=== PATIENT | male | born 1970 | race African-American/Black ===

== ENCOUNTER 2018-10-11 10:40 | Inpatient (IN) | payer OTHER ==
[~2018-10-11] VITALS: Ht 180.3 cm; Wt 136.1 kg
[2018-10-11 10:42] VITALS: BP 143/90
[2018-10-11 11:38] LABS: ABSOLUTE NEUTROPHILS 3.7 thou/uL (1.4-8.2); BASOPHILS 0.6 % (0.0-2.0); EOSINOPHILS 3.8 % (0.0-3.0); HEMATOCRIT 44.2 % (42.0-52.0); HEMOGLOBIN 14.3 gm/dL (14.0-18.0); LYMPHOCYTES 28.7 % (24.0-44.0); MCH 26.2 pg (26.0-34.0); MCHC 32.4 g/dL (28.0-37.0); MCV 80.8 fL (80.0-100.0); MONOCYTES 9.3 % (1.0-8.0); PLATELET COUNT 275 thou/uL (150-400); POLYS 57.6 % (36.0-66.0); RBC 5.47 mil/uL (4.50-6.00); RDW 15.1 % (10.5-14.5); WBC 6.4 thou/uL (4.0-11.0)
[2018-10-11 11:46] LABS: CALCIUM 9.6 mg/dL (8.5-10.1); CREATININE 1.2 mg/dL (0.7-1.3); POTASSIUM 3.4 mmol/L (3.5-5.1)
[2018-10-11 11:53] LABS: ALBUMIN 3.9 g/dL (3.4-5.0); TOTAL BILIRUBIN 0.4 mg/dL (<0.1-1.0); TOTAL PROTEIN 7.7 g/dL (6.4-8.2)
[2018-10-11] MEDS ORDERED: VITAMIN D5000 UNIT PO (12:56)
[2018-10-11] MEDS ORDERED: VITAMIN B-12500 MCG PO (12:56)
[2018-10-11] MEDS ORDERED: COREG6.25 MG PO (12:56)
[2018-10-11] MEDS ORDERED: METFORMIN HCL500 MG PO (12:56)
[2018-10-11] MEDS ORDERED: MOBIC15 MG PO (12:57)
[2018-10-11] MEDS ORDERED: HYDROCHLOROTHIA25 M2 PO (12:57)
[2018-10-11] MEDS ORDERED: NORVASC10 MG PO (12:58)
[2018-10-11] MEDS ORDERED: ONGLYZA5 MG PO (12:59)
[2018-10-11] MEDS ORDERED: LISINOPRIL40 MG PO (12:59)
[2018-10-11] MEDS ORDERED: ZANTAC 150MG T150 M1 PO (12:59)
[2018-10-11 14:17] VITALS: BP 155/95
[2018-10-11 14:43] VITALS: BP 158/94
[2018-10-11 15:25] VITALS: BP 156/96
[2018-10-11 19:30] VITALS: BP 148/96
--- NOTE | 2018-10-11 20:18 | NUR ---
Received pt from the ER, pt was nausead and with pain. Medication given. Pt went to sleep when zofran had kicked in. IV fluids started. Endorsed care to the night nurse
[2018-10-12 03:37] VITALS: BP 157/89
[2018-10-12 05:52] LABS: HEMATOCRIT 42.5 % (42.0-52.0); HEMOGLOBIN 13.8 gm/dL (14.0-18.0); MCH 26.4 pg (26.0-34.0); MCHC 32.4 g/dL (28.0-37.0); MCV 81.3 fL (80.0-100.0); RBC 5.23 mil/uL (4.50-6.00); RDW 15.2 % (10.5-14.5); WBC 7.3 thou/uL (4.0-11.0)
[2018-10-12 06:00] LABS: CALCIUM 9.1 mg/dL (8.5-10.1); CREATININE 1.1 mg/dL (0.7-1.3); MAGNESIUM 1.8 mg/dL (1.8-2.4); POTASSIUM 3.8 mmol/L (3.5-5.1)
[2018-10-12 07:53] VITALS: BP 156/99
--- NOTE | 2018-10-12 11:03 | NUR ---
TOWARDS POC PT A/O X4, VSS, AFEBRILE, PAIN AND NAUSEA MANAGED BY MEDS-SEE NOV. PT IS SCHEDULED AT 1230 FOR SURGERY. PRE OP CHECKLIST DONE. PT STILL ON INT. NASO GASTRIC TUBE FOR DECOMPRESSION OF LEFT NARE. WILL CONTINUE TO MONITOR.
[2018-10-12 19:00] VITALS: BP 194/105
[2018-10-12 19:30] VITALS: BP 186/97
[2018-10-12 20:00] VITALS: BP 197/94
--- NOTE | 2018-10-12 20:00 | NUR ---
Pt. resting quietly in the bed and bp is elevated (see vital signs). Called and spoke to Jimena DASILVA and she was notified. New orders for ivp bp meds, see orders.
--- NOTE | 2018-10-12 23:15 | NUR ---
Pt. with elevated temperature and continues to have elevated bp's (see vital signs). Jimena DASILVA called and notified (see new orders). Bp meds given (see emar). Tylenol given for fever (see emar). Pt. is drowsy, but alert. at the bedside. Pt. using incentive spirometer with assistance.
[2018-10-13] VITALS: BP 173/87
--- NOTE | 2018-10-13 | NUR ---
Pt. feel his pain is not getting any better. Epidural increased to 11 ml/hr and Yahir Flynn RN witness increase.
--- NOTE | 2018-10-13 02:00 | NUR ---
Pt. resting quietly in the bed and offers no complaints.
[2018-10-13 02:54] VITALS: BP 173/95
--- NOTE | 2018-10-13 05:00 | NUR ---
Pt. having pain and rates it a 9 out of 10. Epidural was increased to 12 ml/hr. Yahir Flynn RN witness increase. Bp and temperature are trending down (see vital signs). Pt. did verbalize that his pain has improved since increasing epidural pump. Dressing to his abdomen is intact.
[2018-10-13 05:45] LABS: HEMATOCRIT 41.7 % (42.0-52.0); HEMOGLOBIN 13.5 gm/dL (14.0-18.0); MCH 26.2 pg (26.0-34.0); MCHC 32.3 g/dL (28.0-37.0); MCV 81.2 fL (80.0-100.0); PLATELET COUNT 251 thou/uL (150-400); RBC 5.14 mil/uL (4.50-6.00); RDW 15.1 % (10.5-14.5); WBC 11.9 thou/uL (4.0-11.0)
[2018-10-13 06:14] LABS: CREATININE 1.4 mg/dL (0.7-1.3); MAGNESIUM 1.7 mg/dL (1.8-2.4); POTASSIUM 3.8 mmol/L (3.5-5.1)
[2018-10-13 06:49] LABS: ABSOLUTE NEUTROPHILS 7.1 thou/uL (1.4-8.2)
[2018-10-13 06:50] LABS: PLATELET ESTIMATE NORMAL
[2018-10-13 07:37] VITALS: BP 168/95
--- NOTE | 2018-10-13 09:23 | EKG ---
[address] [address] ELECTROCARDIOGRAM REPORT Name: GENAROSWATIMELISA Room #: 453-P ADM IN M.R.#: [id number] Admission: 10/11/18 Attend Phys: Kehinde Hopkins MD Discharge: Date of : 68 Report #: [id number] THIS REPORT FOR: //name// [facility] Test Date: 2018-10-13 Test Time: 04:13:05 Pat Name: MELISA BOWERS Department: Room: 453 P Gender: M Sample Mounter: Yahir Flynn RN : 1970 Requested By: Jimena Haley Order Number: [id number] MD: Sebastien Eugene Measurements Intervals [place] Rate: 97 P: 39 WV: 163 QRS: 43 QRSD: 79 T: 259 QT: 316 QTc: 402 Interpretive Statements Incomplete analysis due to missing data in precordial lead(s) Sinus rhythm Nonspecific T abnormalities, diffuse leads Missing lead(s): V3 No previous ECG available for comparison Electronically Signed On 10-13-2018 9:23:29 INVOICE CODER by Sebastien Eugene [email or web address] <ELECTRONICALLY SIGNED> By: Sebastien Eugene MD, [facility] 10/13/18 0923 0413 0413 Sebastien Eugene MD, [facility] /EPI
--- NOTE | 2018-10-13 09:28 | EKG ---
[address] [address] ELECTROCARDIOGRAM REPORT Name: ELISSAMELISA Room #: 453-P ADM IN M.R.#: [id number] Admission: 10/11/18 Attend Phys: Kehinde Hopknis MD Discharge: Date of : 68 Report #: [id number] THIS REPORT FOR: //name// [facility] Test Date: 2018-10-13 Test Time: 08:04:27 Pat Name: MEILSA BOWERS Department: Room: 453 P Gender: M Gastroenterology Professor: CHARLENE : 1970 Requested By: Jimena Haley Order Number: [id number] MD: Sebastien Eugene Measurements Intervals [place] Rate: 87 P: 46 MN: 166 QRS: 54 QRSD: 90 T: -76 QT: 327 QTc: 394 Interpretive Statements Sinus rhythm Borderline T abnormalities, diffuse leads No previous ECG available for comparison Electronically Signed On 10-13-2018 9:28:20 E COMMERCE MARKETING MANAGER by Sebastien Eugene [email or web address] <ELECTRONICALLY SIGNED> By: Sebastien Eugene MD, [facility] 10/13/18 0928 0804 3 Sebastien Eugene MD, [facility] /EPI
--- NOTE | 2018-10-13 13:53 | NUR ---
PT ADMITTED RELATED TO VENTRAL HERNIA, SBO, ABD PAIN. CM REVIEWED CHART AND SPOKE WITH CARE TEAM. CM MET WITH PT AT BEDSIDE THIS DAY. PT IS A&O X4. CM ROLE INTRODUCED. PT INDICATED HE LIVES IN A HOUSEWITH HIS AND KIDS WITH WITH 4 STEPS TO ENTER AND 8 STEPS INSIDE. PT HAD BEEN INDEPENDENTWITH GAI AND ADLS WRIST LINER. NO DME OR HH HX. [facility]. PT PLANS TO RETURN HOME ONCE MEDICALLY STABLE. CM TO FOLLOW INDICATED WITH DC PLANNING.
[2018-10-13 14:00] VITALS: BP 168/99
--- NOTE | 2018-10-13 18:42 | NUR ---
TOWARDS POC PT A/O X4, VSS, AFEBRILE. PAIN MANAGED BY MEDS. PT EPIDURAL STILL INTACT INCREASED DOSAGE TO 14ML/HR PER ANESTHESIOLOGIST. NURSE ENCOURAGE THE PT TO SIT UP IN THE BED AND TRY TO GET UP, ABLE TO TOLERATE WELL. LEFT NARE NG TUBE STILL INTACT WITH 20-30ML OUTPUT GREENISH LIQUID. VALERIO POST OP DAY 1 STILL INTACT. WILL CONTINUE TO MONITOR
[2018-10-13 19:37] VITALS: BP 164/84
[2018-10-14 04:06] VITALS: BP 1139/79
[2018-10-14 05:57] LABS: HEMATOCRIT 37.8 % (42.0-52.0); HEMOGLOBIN 12.3 gm/dL (14.0-18.0); MCH 26.5 pg (26.0-34.0); MCHC 32.4 g/dL (28.0-37.0); MCV 81.8 fL (80.0-100.0); RBC 4.62 mil/uL (4.50-6.00); RDW 15.5 % (10.5-14.5); WBC 7.8 thou/uL (4.0-11.0)
--- NOTE | 2018-10-14 06:00 | NUR ---
Pt. rested quietly during the night when checked on during frequent rounds. Pain has been tolerated well with epidural setting at 14 ml/hr. Given zofran 1x for nausea as he complains the toradol makes him nausea with relief. Prevena dressing intact to abdomen.
[2018-10-14 06:03] LABS: CALCIUM 9.3 mg/dL (8.5-10.1); CREATININE 1.3 mg/dL (0.7-1.3); POTASSIUM 3.9 mmol/L (3.5-5.1)
[2018-10-14 07:25] VITALS: BP 163/85
[2018-10-14 15:04] VITALS: BP 171/95
--- NOTE | 2018-10-14 19:47 | NUR ---
Pt stable, fc patent. Pt still on 2L of O2, worked with pt and ot today and was cleared from their stand point. Still on NPO, NGT on intermittent suction, no outpit noted for this shift. Epidural still intact and infusing 14 ml/ hour. 2 HENRY drains intact, abdominal binder changed. All medication given. No complaints or issues verbalized. Plan is to keep current plan of care until bowel function returns, informed the pt as well. Reitrated to inform the staff when he passes gas, if so then NGT will bve removed then pt transitioned ot oral meds, Dr. Diaz to be informed.
[2018-10-14 20:29] VITALS: BP 164/87
--- NOTE | 2018-10-15 03:15 | NUR ---
PT SLEPT MOST OF THE NIGHT NO BM PT STILL ISNT PASSING GAS PER REPORT VS STABLE PT WAS NAUSEATED ONCE DURING THE NIGHT AND GIVEN COMPAZINE PT NOT NAUSEATED AFTER THAT.
[2018-10-15 04:09] VITALS: BP 148/78
[2018-10-15 05:29] LABS: HEMOGLOBIN 12.2 gm/dL (14.0-18.0); MCH 26.2 pg (26.0-34.0); MCHC 32.3 g/dL (28.0-37.0); RBC 4.68 mil/uL (4.50-6.00); RDW 14.9 % (10.5-14.5); WBC 7.4 thou/uL (4.0-11.0)
[2018-10-15 05:50] LABS: CALCIUM 9.5 mg/dL (8.5-10.1); CREATININE 1.2 mg/dL (0.7-1.3)
[2018-10-15 07:20] VITALS: BP 160/86
--- NOTE | 2018-10-15 11:47 | NUR ---
WOUND CONSULT: PT. WAS SEEN TODAY BY DR. ISSA AND MYSELF. DR. REED ASK US TO EVALUATE THE MIDLINE INCSION AND HENRY DRAINS DUE TO DRAIANGE UNDER THE DRAPE. THE LEFT HENRY WAS WORKING FINE AND DRAPE WAS FINE. THE RIGHT HENRY HAD SMALL OF AMOUNT OF DRAIANGE NOTED UNDER THE DRAPE. THIS WAS FIX. PREVENVA IS WORKING WELL. RECOMMENDATIONS: CONTINUE TO MONITOR SITES FOR FUNTIONALITY. PT. AND STAFF NURSE WERE INSTRUCTED ON PLAN OF CARE.
--- NOTE | 2018-10-15 14:48 | NUR ---
CARE TEAM INDICATED THAT NG WAS PULLED TODAY AND THAT PT HAS BEEN STARTED ON A CLEAR LIQUID DIET. CM FOLLOWING INDICATED WITH DC PLANNING.
[2018-10-15 15:12] VITALS: BP 178/89
--- NOTE | 2018-10-15 16:08 | PATH ---
[facility] [place] [address] PATHOLOGY RPT PROCEDURE Name: ELISSAMELISA Room #: 453-P ADM IN M.R.#: [id number] Admission: 10/11/18 Date of : 68 Discharge: Report #: [id number] Path Case #: [id number] [facility] Accession Number: [id number] . 01 Material submitted: . PART A: EXPLANTED MESH PART B: HERNIA SAC . 01 Clinical history: . Ventral hernia . 02 Diagnosis: A. Explanted mesh, removal: - Fragments of fibrovascular connective tissue with mild chronic inflammation in addition to fragments of reactive skeletal muscle. - Two segments of mesh measuring 8.2 cm and 8.1 cm (gross exam only). . B. Hernia sac, ventral, repair: - Fibrovascular and fibroadipose connective tissue with chronic inflammation as well as hemosiderin laden macrophages, consistent with reparative changes within the hernia sac. . (IUV:at;10/14/2018) QTA/10/14/2018 . 02 Electronically signed: . Lilly Ivory MD, Pathologist NPI- [id number] . 01 Gross description: . A. Received in formalin labeled "Melisa Silva, explanted mesh," are two segments of mesh with scant attached coe-brown fibrous tissue measuring 8.2 x 5.4 x 0.3 cm and 8.1 x 5.2 x 0.3 cm in greatest dimensions. Gross photographs are taken. Business Planning Analyst tissue is submitted in cassette A1. . B. Received in formalin labeled "Melisa Silva, hernia sac," are five segments of yellow-brown, lobulated adipose tissue admixed with purple-coe fibromembranous tissue measuring 10.2 x 8.4 x 2.6 cm in aggregate dimensions and ranging from 2.1 to 8.5 cm in maximum dimension. Serial sectioning reveals yellow-coe, fatty to fibromembranous cut surfaces. No lesions or nodules are noted grossly. The two largest segments are submitted representatively in cassettes B1 and B2, and the remaining tissue is submitted representatively in cassette B3. (DAC; 10/13/2018) XDC/XDC . 02 Pathologist provided ICD-10: [address] [address] PATHOLOGY RPT PROCEDURE Name: MELISA SILVA Room #: 453-P ADM IN M.R.#: [id number] Admission: 10/11/18 Date of : 68 Discharge: Report #: [id number] Path Case #: [id number] K43.9, K56.699, R10.9 . 02 CPT . [id number], [id number] Specimen Comment: A courtesy copy of this report has been sent to Specimen Comment: [phone], . Specimen Comment: Report sent to and Performed at: [address], [place] [id number] MD Vitaliy Lock MD Phone: [phone] Performed at: [address] [id number] MD Lilly Ivory MD Phone: [phone]
[2018-10-15 16:35] VITALS: BP 178/71
--- NOTE | 2018-10-15 19:16 | NUR ---
PT STABLE THROUGHOUT SHIFT. PT AMBULATED AROUND UNIT WITH PT WHICH HE TOLERATED WELL. PT NG TUBE REMOVED, CLEAR LIQUIDS TOLERATED WELL, AND ADVANCED TO FULL LIQUIDS FOR DINNER WHICH HE ALSO TOLERATED WELL. FAMILY IN TO VISIT, PT RESTING COMFORTABLY.
[2018-10-15 19:26] VITALS: BP 156/94
[2018-10-16 03:05] VITALS: BP 162/100
--- NOTE | 2018-10-16 03:12 | NUR ---
PT RESTED THROUGH MOST OF THE NIGHT ORAL PAIN MEDICINE GIVEN FOR PAIN IV PAIN MEDICINE GIVEN ONCE FOR BREAKTHROUGH PAIN PT USED CALL LIGHT EFFECTIVELY.
--- NOTE | 2018-10-16 06:47 | NUR ---
PT EPIDURAL CAME APART IN THE MORNING PROVIDERS NOTIFIED, MAIN OR NOTIFIED MSG SENT OUT TO ANESTHESIA
[2018-10-16 07:20] VITALS: BP 184/107
[2018-10-16 08:28] VITALS: BP 179/67
--- NOTE | 2018-10-16 09:55 | NUR ---
WOUND FOLLOW UP: PT. WAS SEEN TODAY BY DR. ISSA AND MYSELF. PT. HENRY DRAINS ARE DRY TODAY AND PREVENA IS C/D/I. NO CHANGES NEED TO BE MADE AT THIS TIME. RECOMMENDATIONS: CONTINUE WITH CURRENT PLAN OF CARE. PT. AND STAFF NURSE WERE INSTRUCTED ON PLAN OF CARE.
--- NOTE | 2018-10-16 14:33 | NUR ---
CARE TEAM INDICATED THAT PT WILL LIKELY DISCAHRGE OVER THE WEEKEND. IT IS ANTICAPTED THAT PT WILL NOT HAVE ANY NEEDS UPON DC.
[2018-10-16 14:50] VITALS: BP 177/94
[2018-10-16 19:13] VITALS: BP 176/98
[2018-10-16 20:16] VITALS: BP 176/84
--- NOTE | 2018-10-16 22:05 | NUR ---
Assumed care at 1845. Pt is resting in bed with family at bedside. He informed me that his concerned about his abdmn pain. He feels like the pain is still the same as the one he was having before the surgery. He stated that he already has informed the INDUSTRIAL RELATIONS OFFICER but she stated it must be related to the surgery. He would like to speak with his surgeon. Will inform the day care nurse. No identified needs at the moment. Will continue to monitor.
[2018-10-17 03:26] VITALS: BP 173/101
[2018-10-17 08:57] VITALS: BP 161/99
--- NOTE | 2018-10-17 16:55 | NUR ---
PT STABLE THROUGHOUT SHIFT. FLUIDS DISCONTINUED. PT ABLE TO MOVE BOWELS, DIET ADVANCED TO REGULAR WHICH PT TOLERATED WELL. PT CONTINUES TO BE CONCERNED ABOUT PAIN ESPECIALLY IT IS "THE SAME BEFORE SURGERY". PT WOULD LIKE TO DISCUSS FURTHER WITH SURGEON. PT RESTING COMFORTABLY.
[2018-10-17 17:08] VITALS: BP 180/95
[2018-10-17 21:51] VITALS: BP 180/92
--- NOTE | 2018-10-18 03:11 | NUR ---
PT RESTED THROUGH MOST OF THE NIGHT PT USED CALL LIGHT EFFECTIVELY DILAUDED GIVEN FOR PAIN NO ISSUES OVERNIGHT.
[2018-10-18 04:30] VITALS: BP 165/85
[2018-10-18 08:04] VITALS: BP 173/124
--- NOTE | 2018-10-18 11:16 | NUR ---
TOWARDS POC PT A/O X4, VSS, AFEBRILE. PAIN AND NAUSEA MANAGED BY MEDS. PT ABLE TO TOLERATE REGULAR DIET. HENRY DRAIN STILL IN PLACE WIHT MINIMAL OUTPUT. NO CONCERNS VOICED AT THIS TIME WILL CONTINUE TO MONITOR.
[2018-10-18] MEDS ORDERED: NORCO 7.5-3251 EACH PO (13:25)
[2018-10-18 13:43] VITALS: BP 173/124
--- NOTE | 2018-10-19 07:32 | HC ---
[facility] [place] [address] [place] [address] CONSULTATION Name: MELISA BOWERS Leslie Room #: 453-P [facility] IN M.R.#: [id number] Admission: 10/11/18 Attend Phys: Kehinde Hopkins MD Discharge: 10/18/18 Date of : 68 Report #: [id number] THIS REPORT FOR: //name// CC: FAM unknown Kehinde Hopkins DATE OF SERVICE: 10/15/2018 CHIEF COMPLAINT: Surgical incision of abdominal wall. HISTORY OF PRESENT ILLNESS: This is a 48-year-old male patient who I have been asked to see with regard to abdominal wall incision. The patient has a history of diabetes and hypertension and previous lap band, has had a significant ventral hernia. He has had the lap band removed and a ventral hernia was repaired at [facility]; however, he developed a bulge around the hernia site and was beginning to have abdominal pain. He was admitted to the hospital and underwent an exploratory laparotomy with lysis of extensive adhesions, debridement of necrotic and ischemic abdominal wall fascia with explanation of synthetic mesh, underwent complex abdominal wall reconstruction with open repair of an incarcerated recurrent incisional ventral hernia and subsequently placement of HENRY drains and placement of a Prevena wound VAC. There has been difficulty with management of the Prevena wound VAC and I have been asked to see him with regard to that issue. PAST MEDICAL HISTORY: Positive for hypertension, diabetes, depression, and obesity. He is status post lap band placement and subsequent removal and complicated abdominal wall hernia. SOCIAL HISTORY: Negative for alcohol or tobacco use. ALLERGIES: None. MEDICATIONS: Include vitamin D, vitamin B, Coreg, Glucophage, Mobic, hydrochlorothiazide, Norvasc, Zantac, Zestril and Onglyza. REVIEW OF SYSTEMS: CONSTITUTIONAL: The patient denies fever, chills, or weight loss. NEUROLOGICAL: The patient denies focal weakness, numbness or tingling. EYES: The patient denies visual changes, redness or drainage. ENT: The patient denies earache, nasal discharge or sore throat. CARDIOVASCULAR: The patient denies chest pain or palpitations or diaphoresis. PULMONARY: The patient denies cough or shortness of breath. GASTROINTESTINAL: The patient does complain of some abdominal discomfort and distention. Denies nausea, vomiting. ORTHOPEDIC: The patient denies pain or swelling in the extremities. Other systems in a 14-point review of systems are negative at this time. [address] [address] CONSULTATION Name: MELISA BOWERS Room #: 453-P [facility] IN ..#: [id number] Admission: 10/11/18 Attend Phys: Kehinde Hopkins MD Discharge: 10/18/18 Date of : 68 Report #: [id number] PHYSICAL EXAMINATION: VITAL SIGNS: At this time include pulse rate 65, blood pressure 160/86, respiratory rate 17, temperature 98.5. GENERAL: This is a well-developed, well-nourished male patient who appears to be in minimal distress. HEENT: Head is normocephalic. Nose and throat clear. NECK: Supple. LUNGS: Clear. ABDOMEN: Distended. Prevena wound VAC is in place; however, it is not with a good seal. There are HENRY drains in the lower quadrants of the abdomen bilaterally. Abdomen is slightly distended, slightly tender, but no guarding, rebound or evidence of any peritonitis. EXTREMITIES: Without clubbing or cyanosis. NEUROLOGIC: The patient is alert and oriented and appropriate. LABORATORY DATA: Include sodium 140, potassium 4.0, chloride 100, CO2 of 25, BUN 12, creatinine 1.2. White blood cell count 7.4 with a hemoglobin 12.2. CLINICAL IMPRESSION: Surgical incision of abdominal wall following a complex abdominal wall repair, small-bowel obstruction, lysis of adhesions. RECOMMENDATIONS: At this point in time, I have worked with the wound care nurse here at the hospital. We have removed some of the drape material over the wound VAC and I have secured a better fit and better suction and a good functioning of the Bobbi VAC. It appears to be nicely intact. We have also been able to restore good suction and seal to the HENRY drain in the right lower quadrant. The patient will require ongoing nutritional support. We will continue to check on him while he is here regarding the functioning of the wound VAC and hopefully once it is removed, we could use a simple incisional type dressing. I appreciate being asked to see him in consultation. <ELECTRONICALLY SIGNED> By: Juwan Beltran MD 10/19/18 0732 1510 [id number] Juwan Beltran MD /nt
== END 2018-10-18 14:19 | disposition home or self-care (01) | DRG 335 ==
LOC: ER 10:40 → EROBS 12:30 → 4W 12:30
PROVIDERS: Physician Assistant; Surgery; ADMIT Internal Medicine
PROC: 0DN80ZZ Release Small Intestine, Open Approach (ICD-10-PCS; principal; 2018-10-12)
PROC: 0WUF0JZ Supplement Abdominal Wall with Synthetic Substitute, Open Approach (ICD-10-PCS; principal; 2018-10-12)
PROC: 0JX80ZZ Transfer Abdomen Subcutaneous Tissue and Fascia, Open Approach (ICD-10-PCS; principal; 2018-10-12)
PROC: 0JB80ZZ Excision of Abdomen Subcutaneous Tissue and Fascia, Open Approach (ICD-10-PCS; principal; 2018-10-12)
DX: K43.0 Incisional hernia with obstruction, without gangrene (principal); K65.9 Peritonitis, unspecified; Z68.41 Body mass index [BMI] 40.0-44.9, adult; K56.51 Intestinal adhesions [bands], with partial obstruction; I10 Essential (primary) hypertension; E11.9 Type 2 diabetes mellitus without complications; F32.9 Major depressive disorder, single episode, unspecified; E66.9 Obesity, unspecified; K21.9 Gastro-esophageal reflux disease without esophagitis; E66.01 Morbid (severe) obesity due to excess calories; E86.0 Dehydration; Z79.899 Other long term (current) drug therapy
CPT/HCPCS: 10040; 10045; 50010; 50101; 50331; 50386; 50445; 50455; 50953; 51114; 51412; 51437; 56525; 56527; 56530; 57092; 57183; 62110; 62900; 65075; 70005

== ENCOUNTER 2018-10-19 20:39 | Emergency (ER) | payer OTHER ==
[~2018-10-19] VITALS: Ht 182.9 cm; Wt 136.1 kg
[~2018-10-19 20:39] MED LIST: COREG6.25 MG PO; HYDROCHLOROTHIA25 M2 PO; LISINOPRIL40 MG PO; METFORMIN HCL500 MG PO; MOBIC15 MG PO; NORCO 7.5-3251 EACH PO; NORVASC10 MG PO; ONGLYZA5 MG PO; VITAMIN B-12500 MCG PO; VITAMIN D5000 UNIT PO; ZANTAC 150MG T150 M1 PO
[2018-10-19 22:24] VITALS: BP 180/103
== END 2018-10-19 22:24 | disposition home or self-care (01) ==
LOC: ER 20:39
DX: Z48.01 Encounter for change or removal of surgical wound dressing (principal); I10 Essential (primary) hypertension; E11.9 Type 2 diabetes mellitus without complications; G47.30 Sleep apnea, unspecified

== ENCOUNTER 2018-10-27 21:55 | Inpatient (IN) | payer BC, OTHER ==
[~2018-10-27] VITALS: Ht 182.9 cm; Wt 140.4 kg
[~2018-10-27 21:55] MED LIST changes: +CARVEDILOL12.5 MG PO; -COREG6.25 MG PO; +ERGOCALCIF50000 UNIT PO; +LISINOPRIL20 MG PO; -LISINOPRIL40 MG PO; -VITAMIN D5000 UNIT PO
[2018-10-27 22:14] VITALS: BP 136/84
[2018-10-27 23:15] LABS: ABSOLUTE NEUTROPHILS 11.4 thou/uL (1.4-8.2); EOSINOPHILS 0.6 % (0.0-3.0); HEMATOCRIT 37.7 % (42.0-52.0); HEMOGLOBIN 12.5 gm/dL (14.0-18.0); LYMPHOCYTES 16.2 % (24.0-44.0); MCH 26.3 pg (26.0-34.0); MCHC 33.1 g/dL (28.0-37.0); MCV 79.5 fL (80.0-100.0); PLATELET COUNT 437 thou/uL (150-400); POLYS 72.2 % (36.0-66.0); RBC 4.74 mil/uL (4.50-6.00); RDW 14.6 % (10.5-14.5); WBC 15.7 thou/uL (4.0-11.0)
[2018-10-27 23:23] LABS: CALCIUM 9.7 mg/dL (8.5-10.1); CREATININE 1.4 mg/dL (0.7-1.3); POTASSIUM 3.4 mmol/L (3.5-5.1)
[2018-10-27 23:29] LABS: ALBUMIN 3.4 g/dL (3.4-5.0); TOTAL BILIRUBIN 0.3 mg/dL (<0.1-1.0); TOTAL PROTEIN 7.4 g/dL (6.4-8.2)
[2018-10-28 02:04] LABS: URINE BILIRUBIN NEGATIVE (Negative); URINE BLOOD NEGATIVE (Negative); URINE CLARITY CLEAR; URINE COLOR YELLOW; URINE GLUCOSE-RANDOM* NEGATIVE (Negative); URINE KETONES NEGATIVE (Negative); URINE LEUKOCYTES-REFLEX NEGATIVE (Negative); URINE NITRITE-REFLEX NEGATIVE (Negative); URINE PROTEIN (DIPSTICK) NEGATIVE (Negative); URINE SPECIFIC GRAVITY <= 1.005 (1.005-1.035); URINE UROBILINOGEN 0.2 E.U./dl (0.2-1.0)
[2018-10-28 02:14] VITALS: BP 137/71
[2018-10-28 02:17] VITALS: BP 134/82
[2018-10-28 02:53] VITALS: BP 143/77
--- NOTE | 2018-10-28 04:49 | NUR ---
RECEIVED REPORT FROM ER NURSE. PT ARRIVED TO ROOM AROUND 0230. ADMISSION HX AND ASSESSMENT COMPLETED CHARTED. DENIES ANY PAIN OR N/V. DRESSING CHANGED TO ABDOMINAL INCISION AND BOTH HENRY DRAINS. RT HENRY DRAIN WITH MINIMAL OUTPUT; FOUL SMELLING DRAINAGE NOTED AROUND DRAIN SITE. ANTIBIOTICS INFUSING ORDERED. PROGRESSING SLOWLY TOWARD POC GOALS. WILL CONTINUE TO MONITOR FURTHER.
[2018-10-28 07:15] VITALS: BP 149/89
--- NOTE | 2018-10-28 07:54 | NUR ---
RECEIVED PT CARE APPROX 0700. A/O. DENIES PAIN. NO NOTED SOA. NO NV. UP AD FARIDEH. HENRY DRAIN INTACT- BULB SUCTION ON LEFT, NO SUCTION NOTED ON RIGHT. DRESSINGS CDI. IVF INFUSING. NO CONCERNS VOICED AT THIS TIME. PT RESTING IN BED WILL CONT. TO MONITOR.
[2018-10-28 08:24] LABS: HEMATOCRIT 35.9 % (42.0-52.0); HEMOGLOBIN 11.3 gm/dL (14.0-18.0); MCH 25.8 pg (26.0-34.0); MCHC 31.6 g/dL (28.0-37.0); MCV 81.7 fL (80.0-100.0); RBC 4.39 mil/uL (4.50-6.00); RDW 14.7 % (10.5-14.5); WBC 12.9 thou/uL (4.0-11.0)
[2018-10-28 08:29] LABS: CALCIUM 9.9 mg/dL (8.5-10.1); CREATININE 1.4 mg/dL (0.7-1.3); POTASSIUM 3.5 mmol/L (3.5-5.1)
--- NOTE | 2018-10-28 10:28 | NUR ---
BRISA REMOVED ON MIDLINE NEERAJ, #25, MIDLINE INCISION INTACT. HENRY DRAIN X1 LEFT/RIGHT DC'D ORDERED. WILL CONT. TO MONITOR.
[2018-10-28] MEDS ORDERED: VITAMIN D1000 UNI1 PO (13:03)
--- NOTE | 2018-10-28 14:25 | NUR ---
ASSESSMENT-PT LIVES AT HOME WITH HIS SPOUSE AND KIDS. PT WALKS ON HIS OWN AND USES NO DME. PT SAYS THIS [facility] AND THAT DR REED HAS ALL THE INFO RELATED TO THIS. INFORMED HIM THAT [facility]ISODE SHOULD BE BILLED TO HIS [facility] PLAN. NOTIFIED JESSY OF THIS. PT VOICES NO CONCERNS RELATED TO DC ND DENIES AND DC NEEDS.
[2018-10-28 17:44] VITALS: BP 183/109
[2018-10-28 20:12] VITALS: BP 154/80
--- NOTE | 2018-10-29 01:34 | NUR ---
PT UP AD FARIDEH IN ROOM. MID ABDOMINAL INCISION ELASTIC ASSEMBLER. NO S/SX OF INFECTION. THE POST HENRY REMOVAL SITES TO RLQ AND LLQ ARE COVERED WITH GAUZE AND TAPE.NO ACTIVE DRAINAGE NOTED. PT HAD A FEVER OF 99.4 AT HS. CHECKED AFTER 1 HR AND PT TEMP WAS WNL. NO MEDS GIVEN TO TREAT.PT STARTED ON AUGMENTIN. HE WEARS HIS ABDOMINAL BINDER. DENIES ANY NAUSEA OR VOMITING.STILL C/O NIGHT SWEATS.DENIES ANY PAIN.NO FURTHER CONCERNS AT THIS TIME.
[2018-10-29 04:54] VITALS: BP 149/89
[2018-10-29 05:09] LABS: ABSOLUTE NEUTROPHILS 5.4 thou/uL (1.4-8.2); BASOPHILS 0.5 % (0.0-2.0); EOSINOPHILS 2.4 % (0.0-3.0); HEMATOCRIT 36.4 % (42.0-52.0); HEMOGLOBIN 11.8 gm/dL (14.0-18.0); LYMPHOCYTES 24.4 % (24.0-44.0); MCH 26.1 pg (26.0-34.0); MCHC 32.3 g/dL (28.0-37.0); MCV 80.9 fL (80.0-100.0); MONOCYTES 10.4 % (1.0-8.0); PLATELET COUNT 378 thou/uL (150-400); POLYS 62.3 % (36.0-66.0); RDW 14.9 % (10.5-14.5); WBC 8.7 thou/uL (4.0-11.0)
[2018-10-29 05:25] LABS: CALCIUM 9.8 mg/dL (8.5-10.1); CREATININE 1.1 mg/dL (0.7-1.3); MAGNESIUM 2.1 mg/dL (1.8-2.4); POTASSIUM 3.6 mmol/L (3.5-5.1)
[2018-10-29 07:39] VITALS: BP 160/99
--- NOTE | 2018-10-29 08:30 | NUR ---
ASSESMENT COMPLETED. VSS. A/O. DENIES PAIN THIS AM. NO NOTED SOA. NO NV. UP AD FARIDEH IN ROOM. DRESSING CHANEGD TO SITES THIS AM- NOTED SEROUSANGUINOUS DRAIN- SMALL. PT RESTING IN CHAIR AT THIS TIME. ANTICIPATING DC HOME TODAY. TOELRATING DIET. WILL CONT. TO MONITOR.
[2018-10-29 10:31] VITALS: BP 160/99
== END 2018-10-29 11:04 | disposition home or self-care (01) | DRG 862 ==
LOC: ER 21:55 → EROBS 10-28 01:55 → 4E 10-28 01:55
PROVIDERS: Nurse Practitioner; Physician Assistant; Surgery; ADMIT Internal Medicine
DX: T81.49XA Infection following a procedure, other surgical site, initial encounter (principal); A41.9 Sepsis, unspecified organism; N17.9 Acute kidney failure, unspecified; L03.311 Cellulitis of abdominal wall; I10 Essential (primary) hypertension; E11.9 Type 2 diabetes mellitus without complications; G47.33 Obstructive sleep apnea (adult) (pediatric); E87.6 Hypokalemia; E86.0 Dehydration; Y83.8 Other surgical procedures as the cause of abnormal reaction of the patient, or of later complication, without mention of misadventure at the time of the procedure; Y92.89 Other specified places as the place of occurrence of the external cause; Z90.49 Acquired absence of other specified parts of digestive tract; Z79.84 Long term (current) use of oral hypoglycemic drugs; Z79.899 Other long term (current) drug therapy
CPT/HCPCS: 10084